=== PATIENT | female | born 1950 | race Caucasian/White ===

== ENCOUNTER → 2019-04-10 | Outpatient (CLI) | payer MEDICARE, OTHER ==
[2019-04-10 12:21] LABS: HCT 38.8 % (34.0-46.0); HGB 13.5 gm/dL (11.4-16.0); MCH 32.1 pg (25.0-35.0); MCHC 34.8 g/dL (31.0-37.0); MCV 92.1 fL (80.0-100.0); Mean Platelet Volume 7.7; Platelet Count 252 k/uL (150-450); RBC 4.21 m/uL (3.80-5.40); RDW 12.3 % (11.5-15.5)
[2019-04-10 12:29] LABS: Partial Thromboplastin Time 24.7 sec (22.0-30.0); Prothrombin Time 10.2 sec (9.0-12.0)
[2019-04-10 12:31] LABS: ALT 15 U/L (4-34); AST 20 U/L (14-36); African American GFR (CKD) >90 (>60 ml/min/1.73 sqM); Albumin 4.6 g/dL (3.5-5.0); Alkaline Phosphatase 85 U/L (38-126); Anion Gap 10 mmol/L; Blood Urea Nitrogen 24 mg/dL (7-17); Calcium 9.8 mg/dL (8.4-10.2); Carbon Dioxide 26 mmol/L (22-30); Chloride 104 mmol/L (98-107); Glucose 130 mg/dL (74-99); Non-African American GFR(CKD) 78 (>60 ml/min/1.73 sqM); Potassium 4.8 mmol/L (3.5-5.1); Sodium 140 mmol/L (137-145); Total Bilirubin 0.4 mg/dL (0.2-1.3); Total Protein 7.9 g/dL (6.3-8.2)
[2019-04-10 12:59] LABS: Appearance,Urine Cloudy (Clear); Bilirubin,Urine Negative (Negative); Blood,Urine Negative (Negative); Color,Urine Yellow; Glucose,Urine (UA) Negative (Negative); Hyaline Casts,Urine 243 /lpf (0-2); Ketones,Urine Trace (Negative); Leukocyte Esterase,Urine Moderate (Negative); Mucus,Urine Many /hpf; Nitrite,Urine Negative (Negative); PH, Urine 5.5 (5.0-8.0); Protein,Urine 1+ (Negative); RBC,Urine 2 /hpf (0-5); Specific Gravity,Urine 1.029 (1.001-1.035); Squamous Epithelial Cell,Urine 2 /hpf (0-4); WBC,Urine 11 /hpf (0-5)
== END | disposition home or self-care (01) ==
LOC: LABPAT 11:06
PROVIDERS: ATTEND Orthopaedic Surgery
DX: Z01.812 Encounter for preprocedural laboratory examination (principal); Z51.81 Encounter for therapeutic drug level monitoring; Z79.01 Long term (current) use of anticoagulants
CPT/HCPCS: 36415; 80053; 81001; 85027; 85610; 85730; 87070

== ENCOUNTER 2019-04-21 10:28 | Day surgery (SDC) | payer MEDICARE, OTHER ==
[2019-04-13 11:31] VITALS: BMI 26.3
[~2019-04-21 10:28] MED LIST: ACETAMINOPHEN TAB 500 MG TAB PO ONE; GABAPENTIN 300 MG CAP PO ONE; HYDROmorphone 0.5 MG/0.5 ML SYRINGE IVP PRN; LACTATED RINGERS 1,000 ML IV SCH; LIDOCAINE 1% 20 ML VIAL (10MG/ML) FOR IV START INTRADERMA PRN; MELOXICAM 7.5 MG TAB PO ONE; METOCLOPRAMIDE 5 MG/ML 2 ML VIAL IVP PRN; MIDAZOLAM 2 MG/2 ML VIAL IV PRN; TRANEXAMIC ACID 1,000 MG in SODIUM CHLORIDE 0.9% 100 ML IVPB ONE; fentaNYL (PF) 50 MCG/ML 2 ML AMP IVP PRN
[2019-04-21] MEDS ORDERED: DEXAMETHASONE SOD PHOSPHATE 10 MG/ML 1 ML VIAL IV ONE (11:09)
[2019-04-21] MEDS ORDERED: ONDANSETRON 4 MG/2 ML VIAL IVP ONE (11:09)
[2019-04-21] MEDS ORDERED: MIDAZOLAM 2 MG/2 ML VIAL ONE (11:30)
[2019-04-21] MEDS ORDERED: ePHEDrine SULFATE/0.9% NACL/PF 50 MG/5 ML SYRINGE IV ONE (11:30)
[2019-04-21] MEDS ORDERED: fentaNYL (PF) 50 MCG/ML 2 ML AMP ONE (11:30)
[2019-04-21] MEDS ORDERED: PROPOFOL 10 MG/ML 20 ML VIAL IV ONE (11:30)
[2019-04-21] MEDS ORDERED: SODIUM CHLORIDE 0.9% 100 ML BAG ONE (11:30)
[2019-04-21] MEDS ORDERED: TRANEXAMIC ACID 1,000 MG/10 ML VIAL ONE (11:30)
[2019-04-21] MEDS ORDERED: ceFAZolin 3,000 MG in SODIUM CHLORIDE 0.9% IRRIGATIO 3,000 ML IRRIGATION ONE (11:34)
[2019-04-21] MEDS: ROPIVACAINE 246.25 MG, EPINEPHrine 0.5 MG, KETOROLAC 30 MG, cloNIDine HCL/PF 80 MCG, WA... MISCELLANE ONE ×10 (11:40→12:43)
[2019-04-21] MEDS ORDERED: LACTATED RINGERS 1,000 ML IV ONE (12:39)
--- NOTE | 2019-04-21 13:06 | P.OP ---
Date of Procedure: 04/21/19 Preoperative Diagnosis: Severe osteoarthritis right hip Postoperative Diagnosis: Severe osteoarthritis right hip Procedure(s) Performed: Right total hip arthroplasty with a direct anterior approach Implants: Mahoney and nephew Polarstem size 7 standard [employer]oney [employer] Nephew R3, 3 hole acetabular shell, 54 mm [employer]hew reflection 6.5 mm cancellus screw, 20 mm 2 [employer]oney [employer]hew R3, XLPE 20 acetabular liner [employer]oney [employer] Nephew Oxinium femoral head 36 m, +0 All components were press-fit. The articulation is Oxinium on polyethylene. Anesthesia: spinal Surgeon: Russell Ochoa Sample Room Supervisor #1: Dick Fan Estimated Blood Loss (ml): 150 Pathology: other (Femoral head) Condition: stable Disposition: PACU Indications for Procedure: After failure of conservative treatment we discussed the surgical and nonsurgical treatment options at length. Patient wishes to proceed with a total hip arthroplasty with a direct anterior approach. Complications specific to this procedure were discussed at length, including but not limited to infection, leg length discrepancy, dislocation, and nerve injury. Patient is aware of all these complications and informed consent was obtained Operative Findings: The operative findings are consistent with severe osteoarthritis of the right hip Description of Procedure: Patient was seen and evaluated in the preoperative area, consent was reviewed, and the surgical site was marked with a skin marker. Patient was then brought to the operating room and given prophylactic antibiotics intravenously. 1 g of Tranexamic acid was also given. A spinal anesthetic was administered by the anesthesia department. The patient was then placed on the [place] table with the bony prominences well-padded. The hip area was then prepped and draped in usual sterile fashion. A universal timeout was then performed, which confirmed the patient's name, surgical site, ALLERGIES, and procedure being performed. Next the incision site was located at 1 cm distal and 1 cm lateral to the anterior superior iliac spine. The skin and subcutaneous tissues were sharply incised. Incision was carefully dissected down to the fascia overlying the tensor fascia toño muscle. This fascia was then incised in line with the incision. Next, using blunt finger dissection, the tensor fascia toño muscle was dissected off its investing fascia. The muscle was then carefully retracted laterally with a cobra retractor over the lateral neck of the femur. Next, the circumflex vessels were identified and cauterized using the AquaMantis device. The anterior hip capsule was then exposed. The capsule was then opened and an inverted T fashion. Cobra retractors were then placed intracapsularly. The proximal femur was then visualized. The femoral neck was then osteotomized appropriate level above the lesser trochanter. Small amount of traction was placed with the [place] table. A small wedge of bone was then removed from the remaining femoral head. Next, using a corkscrew femoral head was easily removed from the acetabulum. On gross visual inspection, the femoral head had complete loss of articular cartilage in multiple periarticular osteophytes. Attention was then turned to the acetabulum. the acetabulum was exposed and any remaining labrum was excised. Sequential reaming of the acetabulum was performed using fluoroscopic guidance. When the appropriate size was reached, a trial was then placed. The position and fit of the trial was checked with fluoroscopy. The trial was then removed. Then, using fluoroscopic guidance, the final implant was impacted at 20 of anteversion and 40 of abduction, and fully seated in the acetabulum. 2 screws were then placed in the acetabulum. Again fluoroscopy was used to check position of the screws. Next, the liner was then impacted, with a 20 elevated liner located in the anterior superior quadrant. Component locking was confirmed. Attention was then directed to the femur. With the aid of the [place] table, the femur was externally rotated to approximately 130, extended, and abducted under the opposite leg. A side hook was then placed under the proximal femur, and the side hook elevator was used to elevate the proximal femur. Retractors were then placed. A capsular release was performed, as well as a release of the conjoined tendon, which afforded excellent visualization of the proximal femur. Next, a box osteotome was used to lateralize the proximal femur. A five piece expansion maker hand was then used to locate the femoral canal. Sequential broaching was then performed with appropriate size which afforded excellent fixation in the proximal femur. A trial was then placed with appropriate head and neck, and the hip was gently reduced with the aid of the [place] table. Fluoroscopy was then used to check position of the components, as well as to ensure equal leg lengths. The hip was then gently dislocated and the trials were then removed. Final implants were then impacted and the hip was again reduced. Final fluoroscopic x-rays confirmed that the components were in anatomic position, as well as equal leg lengths. The hip was also taken through range of motion, and found to be s table. The hip was then copiously irrigated with antibiotic solution with pulsatile lavage. The hip was then irrigated with Irrisept solution. The soft tissues were then injected with a ropivacaine solution, which consisted of 246.25 mg of ropivacaine, 0.5 mg of epinephrine, 30 mg of Toradol, 80 g of clonidine, and 48.45 mL of sterile water, for a total of 100 mL of fluid injected. A second d ose of 1 g of Tranexamic acid was also given. the fascia was then closed with 2-0 strata fix suture. The subcutaneous tissue was closed with 3-0 Vicryl. The subcuticular tissue was closed with 3-0 strata fix suture. The skin was then closed with Dermabond glue and a sterile silver dressing. The patient was then transferred to the recovery room in stable condition. The assistant front office manager WALE Flores was required due to the complexity of surgery, and the need for skilled surgical nurse for positioning, draping, exposure, retraction, and closure of the wound.
[2019-04-21] MEDS ORDERED: HYDROmorphone 0.5 MG/0.5 ML SYRINGE IVP PRN (13:26)
[2019-04-21] MEDS ORDERED: HYDROcodone/APAP 5-325MG 1 EACH TAB PO PRN (13:26)
[2019-04-21] MEDS ORDERED: ONDANSETRON 4 MG/2 ML VIAL IVP PRN ×2 (13:26→21:17)
[2019-04-21] MEDS ORDERED: NALOXONE 0.4 MG/ML 1 ML VIAL IV PRN (13:26)
[2019-04-21] MEDS ORDERED: hydrOXYzine PAMOATE 25 MG CAP PO PRN (13:26)
[2019-04-21] MEDS ORDERED: DIAZEPAM 5 MG TAB PO PRN ×2 (13:26)
[2019-04-21] MEDS ORDERED: MAGNESIUM HYDROXIDE 2,400 MG/10 ML CUP PO PRN (13:26)
--- NOTE | 2019-04-21 13:31 | FL ---
EXAMINATION TYPE: FL guidance operating room, XR Hip Limited RT DATE OF EXAM: 04/21/2019 CLINICAL HISTORY: Right hip pain. TECHNIQUE: Fluoroscopy. Limited intraoperative 2 views right hip. COMPARISON: None. FINDINGS: Fluoroscopic guidance was provided during hip replacement procedure performed by Dr. Nikki palmer. A total of 42 seconds of fluoroscopic time was utilized during the procedure and 2 spot images are acquired. Intraoperative images acquired show metallic hardware from right hip arthroplasty satisfactory in pos ition on frontal projection. IMPRESSION: As Above.
--- NOTE | 2019-04-21 14:45 | XR ---
EXAMINATION TYPE: XR Hip Limited RT DATE OF EXAM: 04/21/2019 CLINICAL HISTORY: Right hip pain and osteoarthritis. TECHNIQUE: Single AP portable view of right hip is obtained immediately postoperatively. COMPARISON: None. FINDINGS: Metallic hardware from right hip arthroplasty is seen and appears satisfactory in alignment and position. There is evidence of recent surgery with subcutaneous gas noted laterally. IMPRESSION: Metallic hardware from right hip arthroplasty is satisfactory in position.
[2019-04-21] MEDS: LACTATED RINGERS 1,000 ML IV SCH (15:40)
[2019-04-21] MEDS: HYDROmorphone 0.5 MG/0.5 ML SYRINGE IVP PRN ×2 (15:43→19:20)
--- NOTE | 2019-04-21 18:39 | P.CONS ---
History of Present Illness - Reason for Consult Consult date: 04/21/19 medical management Requesting physician: Russell Ochoa - Chief Complaint Status post right total hip arthroplasty, type 2 diabetes, fibromyalgia and - History of Present Illness 69-year-old female one of my office patient with past medical history of breast cancer, hyperlipidemia, tremor, osteoarthritis and fibromyalgia who has been complaining of severe arthritis of the right hip for over 2 years had failed medical management had seen Dr. Ochoa and schedule elective right total hip arthroplasty which was done today successfully with no major complica tion. Patient hemodynamically stable pain is well controlled at this point no nausea vomiting. Home medication will resume. Review of Systems CONSTITUTIONAL: Well-developed no acute respiratory distress. EYES: No icterus sclerae, no conjunctivitis. EARS, NOSE, MOUTH, THROAT, and FACE: No sore throat, lymphadenopathy, carotid bruits or deformity. RESPIRATORY: No SOB cough or wheezes. CARDIOVASCULAR: No CP, Palpitation, PND, Orthopnea, or angina. GASTROINTESTINAL: No Abd pain, Nausea or vomiting, no Diarrhea or constipation, No GI Bleed, no distention or masses. GENITOURINARY: Negative for Hematuria or UTI, no kidney stones. INTEGUMENT/BREAST: Negative for any muscular injury with mild osteoarthritis.. HEMATOLOGIC/LYMPHATIC: Negative for bleed or purpura. MUSCULOSKELTAL: Post right total hip arthroplasty NEURLOGICAL: No LOC, Sz or syncope, blurred vision dizziness or abnormality.. Resting tremor BEHAVIORAL/PSYCH: Negative. ENDOCRINE: Negative. Past Medical History Past Medical History: Cancer, Diabetes Mellitus, Fibromyalgia, Hyperlipidemia, Osteoarthritis (OA) Additional Past Medical History / Comment(s): breast cancer DX IN 2009, MURMUR, "HAND TREMORS", diet control diabetic(previous rx), uses an avacen machine for pain relief History of Any Multi-Drug Resistant Organisms: None Reported Past Surgical History: Breast Surgery, Section, Cholecystectomy Additional Past Surgical History / Comment(s): RT mastectomy, Past Anesthesia/Blood Transfusion Reactions: Motion Sickness Past Psychological History: No Psychological Hx Reported Additional Psychological History / Comment(s): . Smoking Status: Former smoker Past Alcohol Use History: Occasional Additional Past Alcohol Use History / Comment(s): QUIT SMOKING 1980, smoked for 15 yrs Past Drug Use History: None Reported - Past Family History Father Family Medical History: Cancer Additional Family Medical History / Comment(s): . Mother Family Medical History: Cancer Additional Family Medical History / Comment(s): LEUKEMIA. Sister(s) Family Medical History: Cancer Additional Family Medical History / Comment(s): BREAST CANCER Medications and Allergies Home Medications Medication Instructions Recorded Confirmed Type Acetaminophen [Tylenol Extra 500 mg PO DIRECTED PRN 04/13/19 04/13/19 History Strength] [place]-3 Fatty Acids/Fish Oil [Fish 1 each PO DAILY 04/13/19 04/13/19 History Oil 1,000 mg Softgel] Primidone [Mysoline] 50 mg PO BID 04/13/19 04/13/19 History traMADol HCL [Ultram] 25 mg PO Q6HR PRN 04/13/19 04/13/19 History Allergies Allergy/AdvReac Type Severity Reaction Status Date / Time latex Allergy Itching Verified 04/13/19 11:14 Physical Exam Vitals: Vital Signs Temp Pulse Pulse Resp BP BP Pulse Ox 04/21/19 15:30 97.7 F 98 18 146/84 92 L 04/21/19 15:00 95 16 151/73 95 04/21/19 14:45 93 16 186/82 96 04/21/19 14:30 92 16 134/73 96 04/21/19 14:15 85 16 161/75 95 04/21/19 14:00 84 16 144/65 97 04/21/19 13:47 85 17 151/80 97 04/21/19 13:32 84 17 137/65 96 04/21/19 13:24 91 17 121/58 96 04/21/19 10:44 98.5 F 69 16 141/65 97 Intake and Output 04/21/19 04/21/19 04/21/19 06:59 14:59 22:59 Intake Total 1251 200 Output Total 150 Balance 1101 200 Intake: IV 1251 200 Output: Estimated Blood Loss 150 Other: Weight 78.471 kg 78.471 kg General Appearance: Alert, cooperative, no distress, appears stated age. Neck HEENT: Supple, no lymphadenopathy, no thyroid enlargement, no carotid bruits. Lungs: Clear to auscultation without crackles or wheezes no rhonchi, no deformity. Chest Wall: Chest wall normal expansion with deep inspiration no tenderness and no deformity was found on exam, no costochondral pain or discomfort. Heart: Regular rate and rhythm, S1, S2 normal, no murmur, rub or gallop. Back: Symmetric, no curvature, ROM normal, no CVA tenderness. Abdomen: Soft, non-tender, bowel sounds active all four quadrants, no masses, no organomegaly. Extremities: Incision in the right hip is in anterior approach no induration no drainage no edema or any abnormal appendectomy. Pulses: 2+ and symmetric. Skin: Skin color, texture, tugor normal, no rashes or lesions. Neurologic: Alert oriented x3 cranial nerves II through XII intact, no motor deficit, no abnormal balance or gait. Assessment and Plan Plan: 1 status post right total hip arthroplasty: Patient is doing well very stable hemodynamically resume home meds, GI, DVT and pulmonary prophylaxis protocol. 2 type 2 diabetes on diet control continue diet control Accu-Chek with sliding scale coverage. 3 breast-cancer: Post right sided mastectomy has been in remission doing very well. 4 familial tremor: Has been on Mysoline resume medication. 5 chronic pain syndrome: Has been on tramadol patient is doing well resume medication along with hydrocodone when patient is leave the hospital. 6 GI prophylaxis: Patient be on Pepcid 20 mg daily. 7 DVT prophylaxis: Per orthopedic protocol patient will be on aspirin. Continue Venodyne boots and knee-high YOANA hose. CODE STATUS: Full code. Dr. Ochoa thank you very much for the consult if I can be any further help to please let me know.
[2019-04-21 20:20] LABS: Glucose,Whole Blood 239 mg/dL (75-99)
[2019-04-21] MEDS: SENNOSIDES-DOCUSATE SODIUM 1 EACH TAB PO SCH (21:01)
[2019-04-21] MEDS: ASPIRIN 81 MG PO SCH (21:01)
[2019-04-21] MEDS: INSULIN ASPART (NovoLOG) 100 UNIT/ML VIAL SQ SCH (21:01)
[2019-04-21] MEDS: PRIMIDONE 50 MG TAB PO SCH (21:01)
[2019-04-22] MEDS: HYDROcodone/APAP 5-325MG 1 EACH TAB PO PRN ×3 (00:44→18:48)
[2019-04-22] MEDS: LACTATED RINGERS 1,000 ML IV SCH ×3 (01:02→21:11)
[2019-04-22 07:12] LABS: Glucose,Whole Blood 175 mg/dL (75-99)
[2019-04-22] MEDS: INSULIN ASPART (NovoLOG) 100 UNIT/ML VIAL SQ SCH ×4 (07:33→21:12)
--- NOTE | 2019-04-22 08:02 | P.DS ---
Providers Expected date of discharge: 04/22/19 Attending physician: Rsusell Ochoa Consults: 04/21/19 13:26 Consult Physician Routine Consulting Provider: Mike Elaine Reason/Comments: Medical management Do you want consulting provider notified?: Yes Primary care physician: Mike Elaine - Discharge Diagnosis(es) (1) Primary osteoarthritis of right hip Current Visit: Yes Status: Acute (2) Status post total hip replacement, right Current Visit: Yes Status: Acute Hospital Course: This is a 69-year-old female right with known history of degenerative arthritis of the right hip. The patient presents for evaluation. After discussion and consideration patient elects to proceed with total hip arthroplasty. The patient is seen preoperatively by her primary care physician and cleared for surgery. Patient is admitted to [facility] on 04/21/2019 for total hip arthroplasty. The procedures performed without complication or sequelae. The patient is doing well postoperatively. She had a little bit dizziness this morning. Labs and vital signs are stable on day of discharge. Her blood pressure was a little bit low and middle the night but is back to normal range. On day of discharge patient's hip incision is healing well. There is minimal erythema. There is no drainage noted at this time. There is minimal soft tissue swelling to the hip and thigh. Patient has full foot and ankle motion without difficulty or pain. Neurovascular status to the right lower extremity is intact. Patient is discharged to home in good condition. Please see med rec for accurate list of home medications. Patient Condition at Discharge: Good Plan - Discharge Summary Discharge Rx Participant: Yes New Discharge Prescriptions: New Aspirin 325 mg PO BID #60 tab HYDROcodone/APAP 5-325MG [[place] 5-325] 1 - 2 each PO Q4-6H PRN #50 tab PRN Reason: Pain Sennosides-Docusate Sodium [Senokot-S] 1 tab PO BID #60 tablet No Action traMADol HCL [Ultram] 25 mg PO Q6HR PRN PRN Reason: Pain Acetaminophen [Tylenol Extra Strength] 500 mg PO DIRECTED PRN PRN Reason: Pain Primidone [Mysoline] 50 mg PO BID [place]-3 Fatty Acids/Fish Oil [Fish Oil 1,000 mg Softgel] 1 each PO DAILY Discharge Medication List Acetaminophen [Tylenol Extra Strength] 500 mg PO DIRECTED PRN 04/13/19 [History] [place]-3 Fatty Acids/Fish Oil [Fish Oil 1,000 mg Softgel] 1 each PO DAILY 04/13/19 [History] Primidone [Mysoline] 50 mg PO BID 04/13/19 [History] traMADol HCL [Ultram] 25 mg PO Q6HR PRN 04/13/19 [History] Aspirin 325 mg PO BID #60 tab 04/22/19 [Rx] HYDROcodone/APAP 5-325MG [[place] 5-325] 1 - 2 each PO Q4-6H PRN #50 tab 04/22/19 [Rx] Sennosides-Docusate Sodium [Senokot-S] 1 tab PO BID #60 tablet 04/22/19 [Rx] Follow up Appointment(s)/Referral(s): Russell Ochoa DO [Doctor of Osteopathic Medicine] - 2 Weeks Activity/Diet/Wound Care/Special Instructions: May bear weight as tolerated with walker. May shower if no drainage from incision. Discharge Disposition: HOME WITH HOME HEALTH SERVICES
[2019-04-22] MEDS: ASPIRIN 81 MG PO SCH ×2 (08:39→20:55)
[2019-04-22] MEDS: FAMOTIDINE 20 MG TAB PO SCH (08:39)
[2019-04-22] MEDS: PRIMIDONE 50 MG TAB PO SCH ×2 (08:40→20:55)
[2019-04-22] MEDS: HYDROmorphone 0.5 MG/0.5 ML SYRINGE IVP PRN ×4 (08:41→20:55)
[2019-04-22 08:59] LABS: Basophils % (A) 0 %; Eosinophils # (A) 0.1 k/uL (0-0.7); Eosinophils % (A) 1 %; HCT 32.1 % (34.0-46.0); Lymphocytes # (A) 1.7 k/uL (1.0-4.8); Lymphocytes % (A) 21 %; MCH 30.6 pg (25.0-35.0); MCHC 32.8 g/dL (31.0-37.0); MCV 93.3 fL (80.0-100.0); Mean Platelet Volume 7.8; Monocytes # (A) 0.5 k/uL (0-1.0); Monocytes % (A) 6 %; Neutrophils # (A) 5.8 k/uL (1.3-7.7); Neutrophils % (A) 71 %; Platelet Count 225 k/uL (150-450); RBC 3.44 m/uL (3.80-5.40); RDW 12.5 % (11.5-15.5); WBC 8.2 k/uL (3.8-10.6)
[2019-04-22 09:01] LABS: HGB 10.5 gm/dL (11.4-16.0)
--- NOTE | 2019-04-22 13:13 | P.PN ---
Subjective Progress Note Date: 04/22/19 69-year-old female one of my office patient with past medical history of breast cancer, hyperlipidemia, tremor, osteoarthritis and fibromyalgia who has been complaining of severe arthritis of the right hip for over 2 years had failed medical management had seen Dr. Ochoa and schedule elective right total hip arthroplasty which was done today successfully with no major complication. Patient hemodynamically stable pain is well controlled at this point no nausea vomiting. Home medication will resume. 04/22: Patient states that she did have some pain during the night and some dizziness which are improving. Repeat hemoglobin is 10.5, blood sugars 239 and 175. Patient has been seen by orthopedics with plan for possible discharge home today. Patient will follow-up with Dr. Elaine in the office. Review of Systems CONSTITUTIONAL: Well-developed no acute respiratory distress. Denies fever, denies chills. EYES: No icterus sclerae, no conjunctivitis. EARS, NOSE, MOUTH, THROAT, and FACE: No sore throat, lymphadenopathy, carotid bruits or deformity. RESPIRATORY: No SOB cough or wheezes. CARDIOVASCULAR: No CP, Palpitation, PND, Orthopnea, or angina. GASTROINTESTINAL: No Abd pain, Nausea or vomiting, no Diarrhea or constipation, No GI Bleed, no distention or masses. GENITOURINARY: Negative for Hematuria or UTI, no kidney stones. INTEGUMENT/BREAST: Negative for any muscular injury with mild osteoarthritis.. HEMATOLOGIC/LYMPHATIC: Negative for bleed or purpura. MUSCULOSKELTAL: Post right total hip arthroplasty NEURLOGICAL: No LOC, Sz or syncope, blurred vision dizziness or abnormality.. Resting tremor BEHAVIORAL/PSYCH: Negative. ENDOCRINE: Negative. Objective - Vital Signs Vital signs: Vital Signs Temp 97.8 F 04/22/19 07:41 Pulse 70 04/22/19 07:41 Resp 18 04/22/19 07:41 BP 109/60 04/22/19 07:41 Pulse Ox 93 L 04/22/19 07:41 Intake & Output 04/21/19 04/22/19 04/22/19 18:59 06:59 18:59 Intake Total 1451 400 Output Total 150 Balance 1301 400 Weight 78.471 kg Intake: IV 1451 Intake, IV Titration 400 Amount Lactated Ringers 1,000 ml 400 @ 100 mls/hr IV .Q10H MORIAH Rx#:[id number] Output: Estimated Blood Loss 150 Other: Voiding Method Toilet Toilet # Voids 3 - Exam General Appearance: Alert, cooperative, no distress, appears stated age. Neck HEENT: Supple, no lymphadenopathy, no thyroid enlargement, no carotid bruits. Lungs: Clear to auscultation without crackles or wheezes no rhonchi, no deformity. Chest Wall: Chest wall normal expansion with deep inspiration no tenderness and no deformity was found on exam, no costochondral pain or discomfort. Heart: Regular rate and rhythm, S1, S2 normal, no murmur, rub or gallop. Back: Symmetric, no curvature, ROM normal, no CVA tenderness. Abdomen: Soft, non-tender, bowel sounds active all four quadrants, no masses, no organomegaly. Extremities: Small dressing to the right hip is in anterior approach no induration no drainage mild localized edema. Pulses: 2+ and symmetric. Skin: Skin color, texture, tugor normal, no rashes or lesions. Neurologic: Alert oriented x3 cranial nerves II through XII intact, no motor deficit, no abnormal balance or gait. - Labs CBC & Chem 7: 04/22/19 07:27 Labs: Abnormal Lab Results - Last 24 Hours (Table) 04/21/19 04/22/19 04/22/19 Range/Units 20:09 07:01 07:27 RBC 3.44 L (3.80-5.40) m/uL Hgb 10.5 L D (11.4-16.0) gm/dL Hct 32.1 L (34.0-46.0) % POC Glucose (mg/dL) 239 H 175 H (75-99) mg/dL Assessment and Plan Plan: Assessment and Plan Plan: 1 status post right total hip arthroplasty: Patient is doing well very stable hemodynamically resume home meds, GI, DVT and pulmonary prophylaxis protocol. 2 type 2 diabetes on diet control continue diet control Accu-Chek with sliding scale coverage. 3 breast-cancer: Post right sided mastectomy has been in remission doing very well. 4 familial tremor: Has been on Mysoline resume medication. 5 chronic pain syndrome: Has been on tramadol patient is doing well resume medication along with hydrocodone when patient is leave the hospital. 6 GI prophylaxis: Patient be on Pepcid 20 mg daily. 7 DVT prophylaxis: Per orthopedic protocol patient will be on aspirin. Continue Venodyne boots and knee-high YOANA hose. CODE STATUS: Full code. Dr. Ochoa thank you very much for the consult if I can be any further help to please let me know. Discharge plan: Home Impression and plan of care have been directed as dictated by the signing physician. Sabrina Hope nurse practitioner acting as scribe for signing physician.
[2019-04-22 19:06] LABS: Hemoglobin A1C 6.3 % (4.0-6.0)
[2019-04-22] MEDS: SENNOSIDES-DOCUSATE SODIUM 1 EACH TAB PO SCH (20:55)
[2019-04-23] MEDS: HYDROcodone/APAP 5-325MG 1 EACH TAB PO PRN ×3 (01:56→14:04)
[2019-04-23] MEDS: LACTATED RINGERS 1,000 ML IV SCH ×2 (05:07→15:43)
[2019-04-23] MEDS: INSULIN ASPART (NovoLOG) 100 UNIT/ML VIAL SQ SCH ×3 (06:53→15:48)
[2019-04-23 08:58] VITALS: PULSE 92; RESP 16; TEMP 98.7
[2019-04-23 08:59] VITALS: BP 125/48
--- NOTE | 2019-04-23 09:01 | P.PN ---
Subjective Progress Note Date: 04/23/19 Principal diagnosis: Status post total hip arthroplasty, anterior approach This is a 69-year-old female who is postoperative day #2 status post total right hip arthroplasty with direct anterior approach. Her discharge was held yesterday secondary to hypotension and dizziness. She states that yesterday evening she felt and heard a pop in her right hip and she was willing to the left side. She states that she has had increased pain but is able to ambulate. She states that it is difficult, however, to put weight on the right leg. She does not complain of any numbness or tingling down the leg. Vital signs and labs are stable. Objective - Vital Signs Vital signs: Vital Signs Temp 98.4 F 04/23/19 02:00 Pulse 60 04/23/19 02:00 Resp 18 04/23/19 02:00 BP 119/53 04/23/19 02:00 Pulse Ox 92 L 04/23/19 02:00 Intake & Output 04/22/19 04/23/19 04/23/19 18:59 06:59 18:59 Other: Voiding Method Toilet Toilet # Voids 2 3 - Exam This is a pleasant 69-year-old female in no acute distress. She is alert and oriented 3. Exam of the right lower extremity reveals that her dressing is clean, dry and intact. She has full foot and ankle motion without difficulty or pain. There is minimal pain with palpation about the lateral and anterior hip. Neurovascular status to the lower extremity is intact. - Labs CBC & Chem 7: 04/22/19 07:27 Labs: Abnormal Lab Results - Last 24 Hours (Table) 04/22/19 04/22/19 Range/Units 07:27 07:27 RBC 3.44 L (3.80-5.40) m/uL Hgb 10.5 L D (11.4-16.0) gm/dL Hct 32.1 L (34.0-46.0) % Hemoglobin A1c 6.3 H (4.0-6.0) % Assessment and Plan (1) Primary osteoarthritis of right hip Current Visit: Yes Status: Acute Code(s): M16.11 - UNILATERAL PRIMARY OSTEOARTHRITIS, RIGHT HIP SNOMED Code(s): 479180050717760 (2) Status post total hip replacement, right Current Visit: Yes Status: Acute Code(s): Z96.641 - PRESENCE OF RIGHT ARTIFICIAL HIP JOINT SNOMED Code(s): 879670523652 Plan: The clinical findings are discussed with the patient. I will obtain an x-ray of the right hip. If hip x-rays are negative she may be discharged to home later today. Please see previous discharge summary.
--- NOTE | 2019-04-23 09:21 | XR ---
Right hip HISTORY: Status post right hip arthroplasty, patient felt pop 2 views of the right hip correlated to prior exam 04/21/2019 There is no significant interval change. Patient is status post right hip arthroplasty. There is windy omic alignment. Lucencies present in the soft tissues. [place] present overlying the right hemipelvis . No fracture or dislocation. IMPRESSION: Postop findings as described.
[2019-04-23] MEDS: ASPIRIN 81 MG PO SCH (09:34)
[2019-04-23] MEDS: FAMOTIDINE 20 MG TAB PO SCH (09:34)
[2019-04-23] MEDS: PRIMIDONE 50 MG TAB PO SCH (09:35)
--- NOTE | 2019-04-23 15:54 | P.PN ---
Subjective Progress Note Date: 04/23/19 69-year-old female one of my office patient with past medical history of breast cancer, hyperlipidemia, tremor, osteoarthritis and fibromyalgia who has been complaining of severe arthritis of the right hip for over 2 years had failed medical management had seen Dr. Ochoa and schedule elective right total hip arthroplasty which was done today successfully with no major complication. Patient hemodynamically stable pain is well controlled at this point no nausea vomiting. Home medication will resume. 04/22: Patient states that she did have some pain during the night and some dizziness which are improving. Repeat hemoglobin is 10.5, blood sugars 239 and 175. Patient has been seen by orthopedics with plan for possible discharge home today. Patient will follow-up with Dr. Elaine in the office. 04/23: Patient states that she heard a pop in her right hip with increasing pain. Patient underwent x-ray of the hip that revealed no significant interval change. Patient is able to ambulate. No chest pain or shortness of breath. The dizziness has resolved. Pain is currently controlled. Anticipate patient will be discharged home later today. Review of Systems CONSTITUTIONAL: Well-developed no acute respiratory distress. Denies fever, denies chills. EYES: No icterus sclerae, no conjunctivitis. EARS, NOSE, MOUTH, THROAT, and FACE: No sore throat, lymphadenopathy, carotid bruits or deformity. RESPIRATORY: No SOB cough or wheezes. CARDIOVASCULAR: No CP, Palpitation, PND, Orthopnea, or angina. GASTROINTESTINAL: No Abd pain, Nausea or vomiting, no Diarrhea or constipation, No GI Bleed, no distention or masses. GENITOURINARY: Negative for Hematuria or UTI, no kidney stones. INTEGUMENT/BREAST: Negative for any muscular injury with mild osteoarthritis.. HEMATOLOGIC/LYMPHATIC: Negative for bleed or purpura. MUSCULOSKELTAL: Post right total hip arthroplasty, increased pain to the right hip NEURLOGICAL: No LOC, Sz or syncope, blurred vision dizziness or abnormality.. Resting tremor BEHAVIORAL/PSYCH: Negative. ENDOCRINE: Negative. Objective - Vital Signs Vital signs: Vital Signs Temp 98.7 F 04/23/19 07:00 Pulse 92 04/23/19 07:00 Resp 16 04/23/19 07:00 BP 125/48 04/23/19 07:00 Pulse Ox 93 L 04/23/19 07:00 Intake & Output 04/22/19 04/23/19 04/23/19 18:59 06:59 18:59 Other: Voiding Method Toilet Toilet # Voids 2 3 - Exam General Appearance: Alert, cooperative, no distress, appears stated age. Neck HEENT: Supple, no lymphadenopathy, no thyroid enlargement, no carotid bruit s. Lungs: Clear to auscultation without crackles or wheezes no rhonchi, no deformity. Chest Wall: Chest wall normal expansion with deep inspiration no tenderness and no deformity was found on exam, no costochondral pain or discomfort. Heart: Regular rate and rhythm, S1, S2 normal, no murmur, rub or gallop. Back: Symmetric, no curvature, ROM normal, no CVA tenderness. Abdomen: Soft, non-tender, bowel sounds active all four quadrants, no masses, no organomegaly. Extremities: Small dressing to the right hip is in anterior approach no induration no drainage mild localized edema. Pulses: 2+ and symmetric. Skin: Skin color, texture, tugor normal, no rashes or lesions. Neurologic: Alert oriented x3 cranial nerves II through XII intact, no motor deficit, no abnormal balance or gait. - Labs CBC & Chem 7: 04/22/19 07:27 Labs: Abnormal Lab Results - Last 24 Hours (Table) 04/22/19 Range/Units 07:27 Hemoglobin A1c 6.3 H (4.0-6.0) % Assessment and Plan Plan: Assessment and Plan Plan: 1 status post right total hip arthroplasty: Patient is doing well very stable hemodynamically resume home meds, GI, DVT and pulmonary prophylaxis protocol. 2 type 2 diabetes on diet control continue diet control Accu-Chek with sliding scale coverage. 3 breast-cancer: Post right sided mastectomy has been in remission doing very well. 4 familial tremor: Has been on Mysoline resume medication. 5 chronic pain syndrome: Has been on tramadol patient is doing well resume medication along with hydrocodone when patient is leave the hospital. 6 GI prophylaxis: Patient be on Pepcid 20 mg daily. 7 DVT prophylaxis: Per orthopedic protocol patient will be on aspirin. Continue Venodyne boots and knee-high YOANA hose. CODE STATUS: Full code. Discharge plan: Home most likely later today Impression and plan of care have been directed as dictated by the signing physician. Sabrina Hope nurse practitioner acting as scribe for signing physician.
== END 2019-04-23 17:35 | disposition home health service (06) ==
LOC: OR 10:28 → 4SSUR 13:19 → OR 04-23 17:35
PROVIDERS: ATTEND Orthopaedic Surgery
DX: M16.11 Unilateral primary osteoarthritis, right hip (principal); I10 Essential (primary) hypertension; E11.8 Type 2 diabetes mellitus with unspecified complications; E78.2 Mixed hyperlipidemia; M79.7 Fibromyalgia; G25.0 Essential tremor; G89.4 Chronic pain syndrome; J44.9 Chronic obstructive pulmonary disease, unspecified; G47.33 Obstructive sleep apnea (adult) (pediatric); R26.81 Unsteadiness on feet; Z88.5 Allergy status to narcotic agent; Z90.10 Acquired absence of unspecified breast and nipple; Z90.49 Acquired absence of other specified parts of digestive tract; Z98.891 History of uterine scar from previous surgery; Z79.891 Long term (current) use of opiate analgesic; Z87.891 Personal history of nicotine dependence; Z79.899 Other long term (current) drug therapy; Z79.84 Long term (current) use of oral hypoglycemic drugs; Z79.1 Long term (current) use of non-steroidal anti-inflammatories (NSAID); Z91.048 Other nonmedicinal substance allergy status; Z78.0 Asymptomatic menopausal state; Z79.82 Long term (current) use of aspirin; Z85.3 Personal history of malignant neoplasm of breast; Z80.3 Family history of malignant neoplasm of breast; Z91.040 Latex allergy status
CPT/HCPCS: 97116; 97530; 97161; 97535 ×2; 97165; 86891; 86900; 86901; 85025; 86850; 88300; 83036; 73501; 73502; 27130; C1776; J2250; J0171; J1100; J0690 ×3; J2405; J3010; J1885; J2795; J2704; J0735; J1170 ×2